=== PATIENT | female | born 1965 | race Caucasian/White ===

== ENCOUNTER 2025-04-11 05:51 | Day surgery (SDC) | payer OTHER ==
[~2025-04-11] VITALS: Ht 172.7 cm; Wt 79.8 kg
[~2025-04-11 05:51] MED LIST: ALBU90OI6 INH; ANAS1 PO; ARIP10 PO; ASCO500 PO; ASPI325 PO; ASPI81CH PO; AZIT250 PO; Apple Cider Vi300 MG PO; BEET ROOT500 MG PO; BENZ100A PO; BUPR150T2 PO; CEPH500 PO; CLIN150; CLIN300; COLE625; CRUTCH3 USE; DESO.25TC TOP; DIVA250EC; DULO30 PO; DULO60 PO; HYDACE5 PO; LEVFLO500 PO; LEVSOD100 PO; NAPR500 PO; NORT50 PO; NORT75 PO; ONDA4 PO; OXYACE7.5T PO; QUET100; QUET100 PO; RXHYDACE PO; SULTRIDS PO; TAMO10 PO; TAMO20 PO; THERA-D2000 UNIT PO; TRAM50 PO; ZIPR20; [UNRECOGNIZED DRUG - CODE] PO
[2025-04-11] MEDS ORDERED: CeFAZolin Sodium 2,000 MG in NS 100 ML IV SCH (06:15)
[2025-04-11 06:29] VITALS: BP 124/82
[2025-04-11] MEDS ORDERED: CeFAZolin Sodium 2,000 MG VIAL ONE (06:33)
--- NOTE | 2025-04-11 06:45 | NUR ---
History, Chart, Medications and Allergies reviewed before start of procedure. Lungs clear T/O to Auscultation. Patient confirms NPO status and agrees with scheduled surgery. Pre-Op teaching done. Pt verbalizes understanding. Patient reports completing Chlorhexadine shower X2 prior to admission to hospital.
[2025-04-11] MEDS ORDERED: Bupivacaine 0.5% HCl 5 MG/ML 30MLVIAL ONE (07:01)
[2025-04-11] MEDS ORDERED: Midazolam HCl 1MG / ML 2ML Vial ONE (07:16)
[2025-04-11] MEDS ORDERED: FentaNYL Citrate 50 MCG/ML 2 ML Injection ONE (07:17)
[2025-04-11] MEDS ORDERED: HYDROmorphone HCl/Pf 1MG SYR IV PRN ×2 (08:00)
[2025-04-11] MEDS ORDERED: FentaNYL Citrate 50 MCG/ML 2 ML Injection IV PRN ×2 (08:00→08:35)
[2025-04-11] MEDS ORDERED: Albuterol 2.5 MG/3 ML VIAL INH PRN (08:00)
[2025-04-11] MEDS ORDERED: Metoclopramide HCl 5MG / ML 2ML Vial IV PRN (08:00)
[2025-04-11 08:15] VITALS: BP 135/91
[2025-04-11 08:20] VITALS: BP 120/80
[2025-04-11 08:25] VITALS: BP 125/76
[2025-04-11] MEDS ORDERED: HYDROcodone 5-APAP 325 TAB PO PRN (08:25)
[2025-04-11] MEDS ORDERED: HYDROmorphone HCl/Pf 1MG SYR ONE (08:28)
[2025-04-11 08:30] VITALS: BP 123/79
[2025-04-11 08:40] VITALS: BP 113/68
--- NOTE | 2025-04-11 09:48 | NUR ---
TO STEP POST MEDIPORT PLACEMENT. RIGHT CHEST WALL DRESSING CDI. STERI STRIP WITH SCANT AMT RED DRAINAGE, DRY. DENIES NAUSEA, SOB. REPORTS 5/10 PAIN TO RIGHT SIDE, BASELINE FOR PT. PAUL PO WELL. PT/FAMILY VERBALIZED UNDERSTANDING OF DC INSTRUCTIONS/FOLLOW UP/WOUND CARE. DRESSED AT BEDSIDE WITH ASSIST. TRANSFERED TO . VSS REMAINED STABLE THROUGHOUT STEP DOWN. TRENDS ERRONIOUSLY DELETED FROM MONITOR. DC'D IV INTACT. DC'D IN STABLE CONDITION TO PRIVATE CAR WITH CT SCAN TECHNOLOGIST.
[2025-04-11] MEDS ORDERED: Dexamethasone Sod Phos 10 MG/ML 1ML VIAL IV ONE (12:00)
[2025-04-11] MEDS ORDERED: Ondansetron HCl 2 MG / ML 2ML Vial IV ONE (12:00)
== END 2025-04-11 09:30 | disposition home or self-care (01) ==
LOC: ORSCMMR 05:51 → ORD 07:30 → ORSCMMR 09:30
PROVIDERS: Surgery
PROC: 0JH60WZ Insertion of Totally Implantable Vascular Access Device into Chest Subcutaneous Tissue and Fascia, Open Approach (ICD-10-PCS; principal; 2025-04-11 07:30)
DX: C50.811 Malignant neoplasm of overlapping sites of right female breast (principal); C50.211 Malignant neoplasm of upper-inner quadrant of right female breast; Z17.1 Estrogen receptor negative status [ER-]; Z17.32 Human epidermal growth factor receptor 2 negative status; Z17.22 Progesterone receptor negative status; Z85.3 Personal history of malignant neoplasm of breast; F20.9 Schizophrenia, unspecified
CPT/HCPCS: 77001; A9270; C1788; J0690; J1100; J1171; J1642; J2250; J2405; J2704; J3010; J7120